=== PATIENT | female | born 1995 | race Caucasian/White ===

== ENCOUNTER → 2019-09-25 | Outpatient (CLI) | payer OTHER, SELFPAY ==
[2019-09-25 14:10] VITALS: BMI 25.2
[2019-09-28 03:06] LABS: Chlamydia By Nucleic Acid AMP Negative (Negative)
[2019-09-28 04:44] LABS: Gonococcus By Nucleic Acid AMP Negative (Negative)
[2019-09-28 11:17] LABS: HPV Reflexed? NOT INDICATED
== END | disposition home or self-care (01) ==
LOC: LABSPEC 16:48
PROVIDERS: PCP Family Medicine; Referring Provider Obstetrics & Gynecology; Visit Provider Obstetrics & Gynecology
DX: Z12.4 Encounter for screening for malignant neoplasm of cervix (principal)
CPT/HCPCS: 87491; 87591; 88175; G0145

== ENCOUNTER → 2019-10-03 | Outpatient (CLI) | payer OTHER, SELFPAY ==
[2019-09-25 14:10] VITALS: BMI 25.2
--- NOTE | 2019-10-03 12:26 | US_ITS ---
STUDY: ULTRASOUND TRANSVAGINAL CLINICAL: Female, 24 years old. IUD placement. TECHNIQUE: Transvaginal COMPARISON: None. FINDINGS: The uterus is anteverted parotid and midline, measuring 7.2 x 4.2 x 2.8 cm. There are no myometrial masses. He has endometrium measures 2.2 mm in thickness and is hyperechoic. There is a metallic foreign body in the fundal canal consistent with IUD. There are no endometrial masses, and there is no fluid in the endometrial cavity. Normal uterine cervix. The right ovary is not visualized. There is no right adnexal mass or cystic structure. Normal left ovary, measuring 2.9 x 2.5 x 2.2 cm. With normal vascularity and DOPPLER imaging. Single follicle noted. There is no free fluid in the pelvis. Polycystic ovary disease: No. US/Transvaginal Non- IMPRESSION: 1. IUD within the endometrial fundus. The uterus is otherwise unremarkable. 2. Normal appearing left ovary. The right ovary is not seen. There is no evidence of right adnexal abnormality. Electronically Signed: Scott Jalloh DO at 21:54 EDT Tel [phone], Service support ,
== END | disposition home or self-care (01) ==
LOC: OPUS 12:26
PROVIDERS: PCP Family Medicine; Referring Provider Obstetrics & Gynecology; Visit Provider Obstetrics & Gynecology
DX: T83.32XA Displacement of intrauterine contraceptive device, initial encounter (principal)
CPT/HCPCS: 76830

== ENCOUNTER → 2020-10-03 10:51 | Outpatient (CLI) | payer OTHER, SELFPAY ==
--- NOTE | 2020-10-03 10:53 | US_ITS ---
STUDY: ULTRASOUND OF THE FEMALE PELVIS - COMPLETE REASON FOR EXAM: Female, 25 years old. IUD placement TECHNIQUE: Transvaginal TECHNICAL QUALITY: Adequate. COMPARISON: Comparison is made with prior examination dated 10/03/2019. FINDINGS: The uterus is anteverted and is in a midline position. The uterus measures 8.1 cm x 4.1 cm x 3.3 cm. Normal uterine cervix. The endometrium measures 2 mm in thickness, and is hyperechoic. There is no demonstrated endometrial mass. There is no demonstrated myometrial mass. I.U.D. - The patient does have an I.U.D.. The IUD is seen within the endocervical canal towards the fundus. The right ovary is non-visualized. The left ovary is visualized. The left ovary measures 3.3 cm x 1.9 cm x 2 cm. There is no left ovarian cyst or ovarian mass. There is no visualized left adnexal mass or complex lesion. There is normal arterial and normal venous vascularity. There is no fluid in the cul-de-sac. US/Transvaginal Non- IMPRESSION: The IUD seen within the endometrial canal at the level of the fundus. Electronically Signed: Vish Montes MD at 12:12 EDT , Service support ,
== END ==
PROVIDERS: PCP Family Medicine; Referring Provider Obstetrics & Gynecology; Visit Provider Obstetrics & Gynecology
DX: T83.32XA Displacement of intrauterine contraceptive device, initial encounter (principal)
CPT/HCPCS: 76830